=== PATIENT | female | born 1970 | race Caucasian/White ===

== ENCOUNTER 2023-02-14 11:58 | Outpatient (CLI) | payer OTHER, SELFPAY | END 2023-02-14 11:59 | disposition home or self-care (01) | LOC: NFLDREF 02-18 11:50 | PROVIDERS: PCP Family Medicine; Referring Provider Family Medicine; Visit Provider Nurse Practitioner Family | DX: R30.0 Dysuria (principal) | CPT/HCPCS: 87086 ==